=== PATIENT | female | born 1975 | race Hispanic/Latino ===

== ENCOUNTER 2016-12-14 20:56 | Emergency (ER) | payer OTHER ==
[2016-12-14 21:25] VITALS: BP 131/78; PULSE 57; RESP 17; TEMP 98.5; O2SAT 100
--- NOTE | 2016-12-14 21:45 | ED PDOC ---
HPI: Back Time Seen by Provider: 12/14/16 21:26 Chief Complaint (Nursing): Female Genitourinary Chief Complaint (Provider): flank pain History Per: Patient History/Exam Limitations: no limitations Onset/Duration Of Symptoms: Days (x1) Current Symptoms Are (Timing): Still Present Additional Complaint(s): Lina Mccracken is a 41 year old female who presents to the emergency department, accompanied by her , with a complaint of right flank "pressure" associated with bloody urine ongoing for 1 day. Denied fever, chills, dysuria, nausea or vomiting. PMD: [facility] Past Medical History Reviewed: Historical Data, Nursing Documentation, Vital Signs Vital Signs: Last Vital Signs Temp 98.5 F 12/14/16 21:22 Pulse 57 L 12/14/16 21:22 Resp 17 12/14/16 21:22 BP 131/78 12/14/16 21:22 Pulse Ox 100 12/14/16 21:22 - Medical History PMH: No Chronic Diseases - Surgical History Surgical History: No Surg Hx - Family History Family History: States: Unknown Family Hx - Social History Current smoker - smoking cessation education provided: No Alcohol: None Drugs: Denies - Home Medications Home Medications: Ambulatory Orders Medication Instructions Recorded Phenazopyridine Hydrochlorid2 200 mg PO TID PRN #10 tab 10/24/14 [Pyridium] Ciprofloxacin/Ciprofloxa HCl 500 mg PO BID #14 tab 12/14/16 [Ciprofloxacin] - Allergies Allergies/Adverse Reactions: Allergies Allergy/AdvReac Type Severity Reaction Status Date / Time No Known Allergies Allergy Verified 12/14/16 21:22 Review of Systems ROS Statement: Except As Marked, All Systems Reviewed And Found Negative Constitutional: Negative for: Fever, Chills Gastrointestinal: Negative for: Nausea, Vomiting Genitourinary Female: Positive for: Hematuria. Negative for: Dysuria Musculoskeletal: Positive for: Back Pain (right flank) Physical Exam - Reviewed Nursing Documentation Reviewed: Yes Vital Signs Reviewed: Yes - Physical Exam Appears: Positive for: Well, Non-toxic, No Acute Distress Head Exam: Positive for: ATRAUMATIC, NORMAL INSPECTION, NORMOCEPHALIC Skin: Positive for: Normal Color Eye Exam: Positive for: Normal appearance ENT: Positive for: Normal ENT Inspection Neck: Positive for: Normal Cardiovascular/Chest: Positive for: Regular Rate, Rhythm, Chest Non Tender Respiratory: Positive for: Normal Breath Sounds, Accessory Muscle Use. Negative for: Decreased Breath Sounds, Respiratory Distress Gastrointestinal/Abdominal: Positive for: Normal Exam, Bowel Sounds, Soft. Negative for: Tenderness, Mass Back: Positive for: Normal Inspection. Negative for: L CVA Tenderness, R CVA Tenderness Extremity: Positive for: Normal ROM Neurologic/Psych: Positive for: Alert, Oriented - ECG O2 Sat by Pulse Oximetry: 100 (RA) Pulse Ox Interpretation: Normal Medical Decision Making Medical Decision Making: Initial Impression: UTI Initial Plan: * Urine * Urine dipstick Scribe Attestation: Documented by Marta Roth, acting as a scribe for Merna Fishman MD. Provider Scribe Attestation: All medical record entries made by the Scribe were at my direction and personally dictated by me. I have reviewed the chart and agree that the record accurately reflects my personal performance of the history, physical exam, medical decision making, and the department course for this patient. I have also personally directed, reviewed, and agree with the discharge instructions and disposition. Disposition - Clinical Impression Clinical Impression: Urinary tract infection - Patient ED Disposition Is Patient to be Admitted: No Doctor Will See Patient In The: Office Counseled Patient/Family Regarding: Studies Performed, Diagnosis, Need For Followup - Disposition Referrals: Mary Solomon MD [Staff Provider] - Disposition: Routine/Home Disposition Time: 22:14 Condition: GOOD Additional Instructions: Take your medications as instructed. Return for worsening. Follow up with your PCP in 2-3 days. You will be called in 2 days with updates. Prescriptions: Ciprofloxacin/Ciprofloxa HCl [Ciprofloxacin] 500 mg PO BID #14 tab Instructions: Urinary Tract Infection in Women (ED) Forms: [employer] (E[place]ian)
== END 2016-12-14 22:25 | disposition home or self-care (01) ==
LOC: H.ER 20:56
DX: N39.0 Urinary tract infection, site not specified (principal)